=== PATIENT | female | born 1965 | race Hispanic/Latino ===

== ENCOUNTER 2021-04-02 21:01 | Emergency (ER) | payer OTHER ==
[~2021-04-02] VITALS: Ht 157.5 cm; Wt 108.9 kg
== END 2021-04-02 21:30 | disposition home or self-care (01) ==
LOC: ER 21:25
DX: L02.415 Cutaneous abscess of right lower limb (principal); E11.9 Type 2 diabetes mellitus without complications
CPT/HCPCS: 99282